=== PATIENT | male | born 1990 | race Caucasian/White ===

== ENCOUNTER 2023-07-03 09:17 | Emergency (ER) | payer BC ==
[~2023-07-03] VITALS: Ht 182.9 cm; Wt 77.1 kg
[2023-07-03 09:28] VITALS: BP_SYST 137; PULSE 97; RESP 16; TEMP 98; O2SAT 96
[2023-07-03] MEDS: FLUORESCEIN SODIUM 1 MG OPHTHALMIC STRIP OP ONE (09:46)
[2023-07-03] MEDS: PROPARACAINE (OPTHANINE 0.5%) 15 ML DROPS OP ONE (09:46)
[2023-07-03] MEDS ORDERED: IPRATROPIUM/ALBUTEROL SULFATE 3 ML AMPUL.NEB (DUONEB) ONE (19:10)
== END 2023-07-03 09:50 | disposition home or self-care (01) ==
LOC: SED 09:17
DX: S05.11XA Contusion of eyeball and orbital tissues, right eye, initial encounter (principal); W22.8XXA Striking against or struck by other objects, initial encounter; Y93.89 Activity, other specified; Y92.89 Other specified places as the place of occurrence of the external cause; Y99.8 Other external cause status
CPT/HCPCS: 99283